=== PATIENT | male | born 1965 | race Hispanic/Latino ===

== ENCOUNTER 2018-11-20 07:13 | Emergency (ER) | payer SELFPAY ==
[~2018-11-20] VITALS: Ht 162.6 cm; Wt 72.6 kg
--- NOTE | 2018-11-20 07:50 | Operative Report ---
DATE OF PROCEDURE: NO DICTATION, LENGTH 2 SECONDS. Job#: [id number]
[2018-11-20 09:20] VITALS: BP 151/72
== END 2018-11-20 08:30 | disposition left against medical advice (07) ==
LOC: ER 07:13
DX: R52 Pain, unspecified (principal); M79.10 Myalgia, unspecified site
CPT/HCPCS: 93005; 99283